=== PATIENT | male | born 1975 | race Caucasian/White ===

== ENCOUNTER 2017-09-09 09:37 | Day surgery (SDC) | payer OTHER ==
[~2017-09-09] VITALS: Ht 162.6 cm; Wt 79.4 kg
[2017-09-09 10:12] VITALS: BP 133/85
[2017-09-09 14:15] VITALS: BP 154/92
== END 2017-09-09 14:29 | disposition home or self-care (01) ==
LOC: SDC 09:37
DX: L72.0 Epidermal cyst (principal); L72.3 Sebaceous cyst; L08.9 Local infection of the skin and subcutaneous tissue, unspecified; F17.200 Nicotine dependence, unspecified, uncomplicated
CPT/HCPCS: 88304; J0690; J2250; J3010